=== PATIENT | female | born 1950 | race Caucasian/White ===

== ENCOUNTER 2020-03-09 23:52 | Emergency (ER) | payer MEDICARE ==
[~2020-03-09] VITALS: Ht 175.3 cm; Wt 74.0 kg
--- NOTE | 2020-03-10 | PHYS DOC ---
General Adult HPI: HPI: "...I was at the [employer].. I just tripped and fell.. I landed really hard on this Lt shoulder...It been hurting really bad.. we came straight from the game.. .. and maybe hut my chest a little... I could not get my coat off.. I am layer after layer.. ".." I could have watched the game at home... But it is a birthday present for my grandson" Patient is a 70 year old female who presents with above hx and complaints fall. The patient localizes pain to upper shoulder area. Does have sensation in the deltoid area. Clavicle appears to be stable. Does have some sternal tenderness on palpation. Distal neurovascular is intact in left hand as compared to right hand. Capillary refill is equal in fingertips of left hand as compared to right hand. . However patient is unable to move shoulder because of the fabienne re pain in left shoulder. Does have obvious crepitation on movement of left shoulder. Patient denies other injury. Patient rates her left shoulder pain as 10 out of 10. Pt. follows with Dr. Keller Review of Systems: Review of Systems: Constitutional: Denies fever or chills Eyes: Denies change in visual acuity HENT: Denies nasal congestion or sore throat Respiratory: Denies cough or shortness of breath Cardiovascular: Complains of sternal chest pain GI: Denies abdominal pain, nausea, vomiting, bloody stools or diarrhea : Denies dysuria Musculoskeletal: Complains of severe left shoulder pain Integument: Denies rash Neurologic: Denies headache, focal weakness or sensory changes Endocrine: Denies polyuria or polydipsia Lymphatic: Denies swollen glands Psychiatric: Denies depression or anxiety Family History: Family History: Noncontributory to presentation Current Medications: Current Meds: See nursing for home meds Allergies: Allergies: No known drug allergies Physical Exam: PE: Constitutional: Moderate acute distress, non-toxic appearance. [] HENT: Normocephalic, atraumatic, bilateral external ears normal, oropharynx moist, no oral exudates, nose normal. [] Eyes: PERRLA, EOMI, conjunctiva normal, no discharge. Glasses] Neck: Normal range of motion, no tenderness, supple, no stridor. [] Cardiovascular:Heart rate regular rhythm, no murmur [] Lungs & Thorax: Bilateral breath sounds equal apex on auscultation [] Abdomen: Bowel sounds normal, soft, no tenderness, no masses, no pulsatile masses. [] Skin: Warm, dry, no erythema, no rash. Contusions to left arm Back: No tenderness, no CVA tenderness. [] Extremities: No tenderness, no cyanosis, no clubbing, ROM intact, no edema. Except findings in left shoulder as per HPI. Rings were removed while patient waiting and waiting room. Neurologic: Alert and oriented X 3, normal motor function, normal sensory function, no focal deficits noted. [] Psychologic: Affect anxious, judgement normal, mood normal. [] EKG: EKG: [] Radiology/Procedures: Radiology/Procedures: [address] [address] IMAGING REPORT Signed PATIENT: BERENICE CABRERA ACCOUNT: [id number] : 1950 LOCATION: ER AGE: 70 SEX: F EXAM STATUS: REG ER ORD. PHYSICIAN: LISET CHAPIN MD REASON: fall at [employer] game PROCEDURE: CHEST PA & LATERAL CHEST PA LATERAL History: Reason: fall at [employer] game / Spl. Instructions: / History: . Pain Comparison: None. Findings: Hyperinflation. No consolidation or pleural effusion. No pneumothorax. Prior granulomatous disease within the chest. Normal heart size. Impression: 1. No acute cardiopulmonary process. Electronically signed by: Jacinto Cerda DO (03/10/2020 2:08 AM) [facility] DICTATED AND SIGNED BY: JACINTO CERDA DO DATE: 03/10/20207 CC: LILIA KELLER MD; LISET CHAPIN MD ~MTH0 0 [][address] [address] IMAGING REPORT Signed PATIENT: BERENICE CABRERA ACCOUNT: [id number] : 1950 LOCATION: ER AGE: 70 SEX: F EXAM STATUS: REG ER ORD. PHYSICIAN: LISET CHAPIN MD REASON: fall at [employer] game PROCEDURE: SHOULDER 2+V LEFT SHOULDER 2+V LEFT History: Reason: fall at [employer] game / Spl. Instructions: / History: Technique: 3 views left shoulder. Comparison: None. Findings: Acute comminuted left humeral neck fracture. No dislocation. No additional fracture. Impression: 1. Acute comminuted left proximal humerus fracture. Electronically signed by: Jacinto Cerda DO (03/10/2020 2:09 AM) [facility] DICTATED AND SIGNED BY: JACINTO CERDA DO DATE: 03/10/20208 CC: LILIA KELLER MD; LISET CHAPIN MD ~MTH0 0 Heart Score: Risk Factors: Risk Factors: DM, Current or recent (<one month) smoker, HTN, HLP, family history of CAD, obesity. Risk Scores: Score 0 - 3: 2.5% MACE over next 6 weeks - Discharge Home Score 4 - 6: 20.3% MACE over next 6 weeks - Admit for Clinical Observation Score 7 - 10: 72.7% MACE over next 6 weeks - Early Invasive Strategies Course & Med Decision Making: Course & Med Decision Making Pertinent Labs and Imaging studies reviewed. (See chart for details) Patient to use ice packs as needed. Wear sling. Follow-up with primary care. Follow-up orthopedics. May take Tylenol and ibuprofen for pain. For marked pain may take Vicoprofen. May remove sling and do only limited dependent passive range of motion 4 times a day. Monitor closely for circulation changes in left hand. Would not put rings back on left hand until left shoulder is completely healed. Patient was given a copy of x-ray for follow-up of her Ortho. If unable to get in to her orthropedic doctor- Call [facility] orthopedics [phone]. Distal neurovascular intact post sling. Impression: 1. Trip and fall 2. Commuted left humeral head fracture [] Dragon Disclaimer: [place] Disclaimer: This electronic medical record was generated, in whole or in part, using a voice recognition dictation system. Departure Departure: Referrals: LILIA KELLER MD (PCP) Scripts Hydrocodone/Ibuprofen (HYDROCODONE-IBUPROFEN 7.5-200 ) 1 Each Tablet 1 TAB PO PRN Q6HRS PRN for PAIN, #30 TAB 0 Refills Prov: LISET CHAPIN MD 03/10/20 Dragon Disclaimer This chart was dictated in whole or in part using Voice Recognition software in a busy, high-work load, and often noisy Emergency Department environment. It may contain unintended and wholly unrecognized errors or omissions. Dragon Disclaimer This chart was dictated in whole or in part using Voice Recognition software in a busy, high-work load, and often noisy Emergency Department environment. It may contain unintended and wholly unrecognized errors or omissions. LISET CHAPIN MD Mar 10, 2020 00:00
[2020-03-10] MEDS ORDERED: MORPHINE SULFATE 10 MG/ML SYRINGE. ONE (00:54)
[2020-03-10] MEDS ORDERED: MORPHINE SULFATE 10 MG/ML SYRINGE. SQ ONE ×2 (01:00→03:00)
[2020-03-10] MEDS ORDERED: ONDANSETRON ODT 4 MG TAB.RAPDIS PO ONE (01:00)
[2020-03-10] MEDS ORDERED: HYDR-1179 PO (02:00)
[2020-03-10] MEDS ORDERED: DIPH,PERTUSS(ACELL),TET VAC/PF 0.5 ML SYRINGE. VAX IM ONE (02:00)
--- NOTE | 2020-03-10 02:11 | RAD ---
CHEST PA LATERAL History: Reason: fall at [employer] / [employer]. Instructions: / History: . Pain Comparison: None. Findings: Hyperinflation. No consolidation or pleural effusion. No pneumothorax. Prior granulomatous disease within the chest. Normal heart size. Impression: 1. No acute cardiopulmonary process. Electronically signed by: Jacinto Cerda DO (03/10/2020 2:08 AM) [facility] [place]
--- NOTE | 2020-03-10 02:12 | RAD ---
SHOULDER 2+V LEFT History: Reason: fall at [employer] game / Spl. Instructions: / History: Technique: 3 views left shoulder. Comparison: None. Findings: Acute comminuted left humeral neck fracture. No dislocation. No additional fracture. Impression: 1. Acute comminuted left proximal humerus fracture. Electronically signed by: Jacinto Cerda DO (03/10/2020 2:09 AM) [facility]
[2020-03-10] MEDS ORDERED: BACITRACIN ZINC TOPICAL OINT PACKET. TP ONE (02:30)
== END 2020-03-10 02:40 | disposition home or self-care (01) ==
LOC: ER 23:52
DX: S42.292A Other displaced fracture of upper end of left humerus, initial encounter for closed fracture (principal); R07.2 Precordial pain; W01.0XXA Fall on same level from slipping, tripping and stumbling without subsequent striking against object, initial encounter; Y93.89 Activity, other specified; Y92.89 Other specified places as the place of occurrence of the external cause; Y99.8 Other external cause status
CPT/HCPCS: 71046; 73030; 90471; 90715; 96372; 99284; J2270; Q0162